=== PATIENT | male | born 1980 | race Caucasian/White ===

== ENCOUNTER 2018-06-07 19:15 | Emergency (ER) | payer OTHER ==
[2018-06-07 19:25] VITALS: BP 120/64; PULSE 67; RESP 18; TEMP 96.4
--- NOTE | 2018-06-07 19:59 | ED ---
Wound/Laceration HPI - General Chief Complaint: Needlestick/Exposure Stated Complaint: needlestick Source: patient Mode of arrival: ambulatory Limitations: no limitations - History of Present Illness Initial Comments: 38-year-old male patient presents to the emergency department today for evaluation of body fluid exposure. Patient was performing a surgical procedure he feels like a patient's bone cut through his glove causing a small laceration to the left index finger. Patient states this occurred approximately an hour ago. States that he did extensively clean the area. He states he is up-to- date on immunizations including hepatitis B and tetanus vaccine. He was able to obtain source blood for draw. He denies any other physical symptoms or concerns. - Related Data Home Medications Medication Instructions Recorded Confirmed No Known Home Medications 06/07/18 06/07/18 Allergies Allergy/AdvReac Type Severity Reaction Status Date / Time No Known Allergies Allergy Verified 06/07/18 19:20 Review of Systems ROS Statement: Those systems with pertinent positive or pertinent negative responses have been documented in the HPI. ROS Other: All systems not noted in ROS Statement are negative. Past Medical History Past Medical History: No Reported History History of Any Multi-Drug Resistant Organisms: None Reported Past Surgical History: No Surgical Hx Reported Past Psychological History: No Psychological Hx Reported Smoking Status: Never smoker Past Alcohol Use History: Occasional Past Drug Use History: None Reported General Exam Limitations: no limitations General appearance: alert, in no apparent distress Extremities exam: Present: full ROM, normal capillary refill, other (Patient has small superficial laceration noted to the lateral aspect of the left index finger. It is otherwise pink, warm, and dry. Cap refills less than 3 seconds. Radial pulses 2+ and equal bilaterally.). Absent: normal inspection, tenderness, pedal edema, joint swelling, calf tenderness Neurological exam: Present: alert, oriented X3 Psychiatric exam: Present: normal affect, normal mood Skin exam: Present: warm, dry, intact, normal color. 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 We did draw blood for testing. Patient reported he is up-to-date on immunizations including tetanus and hepatitis B. We did obtain source but for trauma and will be obtaining a rapid HIV testing. We did discuss risk of yumiko HIV. Did consent for the blood draw. He'll be discharged at this time. We will call with results. He is instructed to follow-up with employee health services. I did call the patient and inform him that source testing was negative for HIV. Disposition Clinical Impression: Employee exposure to body fluids Disposition: HOME SELF-CARE Condition: Good Instructions (If sedation given, give patient instructions): Body Substance Exposure (ED) Additional Instructions: Follow-up with employee health services. Return to the emergency department immediately for any new, worsening, or concerning symptoms. Is patient prescribed a controlled substance at d/c from ED?: No Referrals: None,Stated [Primary Care Provider] - 1-2 days Time of Disposition: 19:59
[2018-06-08 09:55] LABS: Hepatitis B Surface AB- Quant 124.3
[2018-06-08 09:56] LABS: Hepatitis C IgG Antibody Non-Reactive
[2018-06-08 09:58] LABS: HIV 1 AB Non-Reactive; HIV AB P24 Non-Reactive; HIV P24 AG Non-Reactive
== END 2018-06-07 19:42 | disposition home or self-care (01) ==
LOC: EC 19:15
DX: Z77.21 Contact with and (suspected) exposure to potentially hazardous body fluids (principal); S61.211A Laceration without foreign body of left index finger without damage to nail, initial encounter; W26.9XXA Contact with unspecified sharp object(s), initial encounter; Y93.89 Activity, other specified
CPT/HCPCS: 36415; 86706; 86803; 87390; 99282

== ENCOUNTER → 2018-11-30 | Outpatient (CLI) | payer OTHER ==
[2018-11-30 16:41] LABS: African American GFR (CKD) 99.6 (60.0-200.0); Albumin 4.5 g/dL (3.80-4.90); Albumin/Globulin Ratio 2.25 (1.60-3.17); Anion Gap 6.9 mmol/L (4.00-12.00); BUN/Creat Ratio 16.36 Ratio (12.00-20.00); Calcium 10.4 mg/dL (8.7-10.3); Carbon Dioxide 27.1 mmol/L (21.6-31.8); LDL Cholesterol,Calculated 79.6 mg/dL (0.0-131.0); Potassium 4.7 mmol/L (3.5-5.5); Total Bilirubin 1.1 mg/dL (0.2-1.2); Total Protein 6.5 g/dL (6.2-8.2); VLDL Calculation 10.4 mg/dL (5.00-40.00)
== END | disposition home or self-care (01) ==
LOC: LABWHC1 08:06
PROVIDERS: ATTEND Physician Assistant
DX: Z13.220 Encounter for screening for lipoid disorders (principal); Z13.228 Encounter for screening for other metabolic disorders
CPT/HCPCS: 36415; 80053; 80061

== ENCOUNTER 2018-12-06 14:38 | Emergency (ER) | payer OTHER ==
[2018-12-06 15:07] VITALS: BP 101/78; PULSE 70; RESP 18; TEMP 98
--- NOTE | 2018-12-06 15:23 | ED ---
General Adult HPI - General Stated complaint: Needle stick-[facility] Time Seen by Provider: 12/06/18 14:38 Source: RN notes reviewed - History of Present Illness Initial comments: This is a 38-year-old male presents emergency department for needle stick in the left thumb. Patient was in the OR performing surgery when he poked himself left thumb. Patient has no other injuries. Patient states he is up-to-date on his vaccinations. Patient did rinse the thumb off after the needle stick. - Related Data Home Medications Medication Instructions Recorded Confirmed No Known Home Medications 06/07/18 06/07/18 Allergies Allergy/AdvReac Type Severity Reaction Status Date / Time No Known Allergies Allergy Verified 06/07/18 19:20 Review of Systems ROS Statement: Those systems with pertinent positive or pertinent negative responses have been documented in the HPI. ROS Other: All systems not noted in ROS Statement are negative. Past Medical History Past Medical History: No Reported History History of Any Multi-Drug Resistant Organisms: None Reported Past Surgical History: No Surgical Hx Reported Past Psychological History: No Psychological Hx Reported Smoking Status: Never smoker Past Alcohol Use History: Occasional Past Drug Use History: None Reported General Exam - General Exam Comments Initial Comments: GENERAL Patient is well-developed and well-nourished. Patient is in no distress. EYES Patient's pupils are equal and round. Extraocular motion is intact SKIN Left thumb has a very small puncture wound NEURO The patient is alert and oriented 3 PYSCH Patient has normal interpersonal interactions. MUSCULOSKELETAL All 4 joints have full range of motion. Medical Decision Making - Medical Decision Making Patient has blood drawn in the emergency department given discharge instructions. Disposition Clinical Impression: Needle stick injury Disposition: HOME SELF-CARE Instructions (If sedation given, give patient instructions): Needle Stick Injuries (ED) Is patient prescribed a controlled substance at d/c from ED?: No Referrals: Jc Suazo MD [Primary Care Provider] - 1-2 days Time of Disposition: 15:29
[2018-12-06 23:37] LABS: HIV 1 AB Non-Reactive (Non-Reactive); HIV AB P24 Non-Reactive (Non-Reactive); HIV P24 AG Non-Reactive (Non-Reactive)
[2018-12-07 00:30] LABS: Hepatitis C IgG Antibody Non-Reactive (Non-Reactive)
== END 2018-12-06 15:30 | disposition home or self-care (01) ==
LOC: EC 14:38
DX: S61.032A Puncture wound without foreign body of left thumb without damage to nail, initial encounter (principal); W46.0XXA Contact with hypodermic needle, initial encounter; Y93.89 Activity, other specified; Y92.234 Operating room of hospital as the place of occurrence of the external cause; Y99.0 Civilian activity done for income or pay
CPT/HCPCS: 36415; 86706; 86803; 87390; 99283

== ENCOUNTER → 2021-05-14 | Outpatient (CLI) | payer OTHER ==
--- NOTE | 2021-05-15 08:10 | CT ---
EXAMINATION TYPE: CT abdomen pelvis w con DATE OF EXAM: 05/14/2021 COMPARISON: None HISTORY: Abdominal pain, periumbilical region, tenderness. Hx LT inguinal hernia repair. CT DLP: 928.70 mGycm CONTRAST: CT scan of the abdomen and pelvis is performed with Oral Contrast and with IV Contrast, patient injec jamshid with 100 mL of Isovue 300. FINDINGS: LUNG BASES-: No visible nodule. No infiltrate. LIVER/GB: No calcified gallstones. No space occupying hepatic lesion. Biliary tree is of normal ca liber. PANCREAS: No inflammation. No distinct mass. SPLEEN: No splenic enlargement. No lesion seen. ADRENALS: No nodule. No thickening. KIDNEYS/BLADDER: No hydronephrosis. No nephrolithiasis. No distinct renal mass. Urinary bladder g rossly unremarkable. BOWEL: Normal appendix. Normal bowel caliber. No inflammation. GENITAL ORGANS: Prostate gland enlargement and calcifications. LYMPH NODES: No greater than 1cm abdominal or pelvic lymph nodes are appreciated. AORTA: No significant abnormality. OSSEOUS STRUCTURES: No significant abnormality is seen. OTHER: Left inguinal surgical intervention. No evidence for recurrent hernia. IMPRESSION: 1. Left inguinal surgical intervention. No evidence for recurrent hernia.
== END | disposition home or self-care (01) ==
LOC: RADCTMAIN 16:56
PROVIDERS: ATTEND Surgery
DX: R10.33 Periumbilical pain (principal)
CPT/HCPCS: 74177; Q9967